=== PATIENT | male | born 1975 | race African-American/Black ===

== ENCOUNTER 2016-12-13 06:41 | Emergency (ER) | payer SELFPAY ==
[~2016-12-13] VITALS: Ht 190.5 cm; Wt 109.0 kg
[~2016-12-13 06:41] MED LIST: NOCURR; VALA500T38 PO
[2016-12-13] MEDS ORDERED: LIDOCAINE HCL BUFFERED 1% 20 ML VIAL INJ ONE (07:45)
[2016-12-13 07:59] VITALS: BP 140/85
[2016-12-13] MEDS ORDERED: HYDROCORTISONE 1% 1.5 GM CREAM TP ONE (08:15)
== END 2016-12-13 08:40 | disposition home or self-care (01) ==
LOC: EMS 06:42
DX: K64.9 Unspecified hemorrhoids (principal); Z88.0 Allergy status to penicillin
CPT/HCPCS: 99282; J3490

== ENCOUNTER 2017-01-13 15:47 | Emergency (ER) | payer MEDICAID ==
[~2017-01-13] VITALS: Ht 190.5 cm; Wt 100.0 kg
[~2017-01-13 15:47] MED LIST changes: -VALA500T38 PO
[2017-01-13] MEDS ORDERED: ONDANSETRON HCL 4 MG/2 ML VIAL IVP ONE (16:00)
[2017-01-13] MEDS ORDERED: SODIUM CHLORIDE 0.9% 1,000 ML IV ONE ×2 (16:00→17:30)
[2017-01-13] MEDS ORDERED: HYDROmorphone 2 MG/ML SYRINGE IVP ONE ×2 (16:00→16:45)
[2017-01-13] MEDS ORDERED: NALOXONE HCL 1 MG/ML 2 ML SYG ONE (16:56)
[2017-01-13] MEDS ORDERED: FLUMAZENIL 0.1 MG/ML 5 ML VIAL IVP ONE (16:56)
[2017-01-13] MEDS ORDERED: MIDAZOLAM HCL 5 MG/ML VIAL IVP ONE ×2 (17:00→17:30)
[2017-01-13] MEDS ORDERED: ETOMIDATE 2 MG/ML 10 ML VIAL IVP ONE ×2 (17:00→17:30)
[2017-01-13] MEDS ORDERED: FentaNYL CITRATE-PF 100 MCG/2 ML VIAL ONE (17:16)
[2017-01-13] MEDS ORDERED: FentaNYL CITRATE-PF 100 MCG/2 ML VIAL IVP ONE (17:30)
[2017-01-13 18:43] VITALS: BP 167/99
== END 2017-01-13 19:02 | disposition home or self-care (01) ==
LOC: EMS 15:50
DX: S43.004A Unspecified dislocation of right shoulder joint, initial encounter (principal); Z88.0 Allergy status to penicillin; W11.XXXA Fall on and from ladder, initial encounter; Y93.89 Activity, other specified; Y92.89 Other specified places as the place of occurrence of the external cause; Y99.8 Other external cause status
CPT/HCPCS: 23650; 73020; 96361; 96374; 96375; 96376; 99285; J1170; J2250; J2405; J3010; J3490; J7030; 99152; 99153; J2310

== ENCOUNTER 2017-12-02 07:24 | Emergency (ER) | payer MEDICAID ==
[~2017-12-02] VITALS: Ht 190.5 cm; Wt 108.0 kg
[2017-12-02] MEDS ORDERED: KETOROLAC TROMETHAMINE 30 MG/ML VIAL IVP ONE (08:00)
[2017-12-02] MEDS ORDERED: ONDANSETRON HCL 4 MG/2 ML VIAL IVP ONE (08:00)
[2017-12-02] MEDS ORDERED: SODIUM CHLORIDE 0.9% 1,000 ML IV ONE (08:00)
[2017-12-02 08:11] LABS: HEMATOCRIT 34.1 % (41-53); HEMOGLOBIN 10.5 g/dL (13.5-17.5); MEAN CORPUSCULAR HEMOGLOBIN 20.6 pg (26.0-34.0); MEAN CORPUSCULAR HGB CONC 30.7 G/dL (31.0-37.0); MEAN CORPUSCULAR VOLUME 67 fL (80-100); PLATELET COUNT (AUTO) 296 K/uL (150-450); RED BLOOD CELL COUNT(AUTO) 5.07 MIL/uL (4.50-5.90); RED CELL DISTRIBUTION WIDTH 19.5 % (11.5-14.5)
[2017-12-02 08:41] LABS: ANION GAP 11 mmol/L (8-16); CARBON DIOXIDE 26 mmol/L (22-29); CHLORIDE 105 mmol/L (98-107); CREATININE 0.82 mg/dL (0.60-1.30); GLOMERULAR FILTR. RATE CALC > 60 mL/min (>60); GLUCOSE,RANDOM 104 mg/dL (70-110); SODIUM SERUM 142 mmol/L (136-145); UREA NITROGEN, BLOOD 9 mg/dL (7-18)
[2017-12-02 08:44] VITALS: BP 136/81
[2017-12-02 08:58] LABS: ALANINE AMINOTRANSFERASE 33 U/L (12-78); ALBUMIN 4.3 g/dL (3.4-5.0); ALKALINE PHOSPHATASE 45 U/L (46-116); ASPARTATE AMINOTRANSFERASE 24 U/L (15-37); BILIRUBIN,TOTAL 0.4 mg/dL (0.1-1.0); LIPASE 187 U/L (73-393); TOTAL PROTEIN, SERUM 7.8 g/dL (6.4-8.2)
[2017-12-02 09:30] LABS: BAND NEUTROPHILS % (MANUAL) 2 % (1-5); EOSINOPHILS % (MANUAL) 2 % (1-6); LYMPHOCYTES % (MANUAL) 33 % (22-44); MONOCYTES % (MANUAL) 7 % (2-9); SEGMENTED NEUTROPHILS % 56 % (40-70)
[2017-12-02] MEDS ORDERED: ACETAMINOPHEN 500 MG TABLET PO ONE (09:30)
== END 2017-12-02 09:28 | disposition home or self-care (01) ==
LOC: EMS 07:25
DX: R11.2 Nausea with vomiting, unspecified (principal); R53.1 Weakness; R51 Headache; J02.9 Acute pharyngitis, unspecified; M79.1 Myalgia; Z88.0 Allergy status to penicillin
CPT/HCPCS: 36415; 80053; 83690; 85025; 96374; 96375; 99284; G0480; J1885; J2405; J7030

== ENCOUNTER 2018-07-25 06:19 | Emergency (ER) | payer MEDICAID ==
[~2018-07-25] VITALS: Ht 193 cm; Wt 100.0 kg
[2018-07-25 06:59] VITALS: BP 143/86
== END 2018-07-25 07:05 | disposition home or self-care (01) ==
LOC: EMS 06:19
DX: H00.024 Hordeolum internum left upper eyelid (principal); Z88.0 Allergy status to penicillin; Z87.891 Personal history of nicotine dependence

== ENCOUNTER 2020-03-26 00:47 | Emergency (ER) | payer MEDICAID ==
[~2020-03-26] VITALS: Ht 190.5 cm; Wt 102.3 kg
[2020-03-26] MEDS ORDERED: KETOROLAC TROMETHAMINE 30 MG/ML VIAL IVP ONE (01:15)
[2020-03-26] MEDS ORDERED: SODIUM CHLORIDE 0.9% 1,000 ML IV ONE ×2 (01:15→01:30)
[2020-03-26 02:05] LABS: HEMATOCRIT 34.7 % (41-53); HEMOGLOBIN 10.2 g/dL (13.5-17.5); MEAN CORPUSCULAR HEMOGLOBIN 17.7 pg (26.0-34.0); MEAN CORPUSCULAR HGB CONC 29.3 G/dL (31.0-37.0); MEAN CORPUSCULAR VOLUME 60 fL (80-100); PLATELET COUNT (AUTO) 344 K/uL (150-450); RED BLOOD CELL COUNT(AUTO) 5.77 MIL/uL (4.50-5.90)
[2020-03-26 02:12] LABS: ANION GAP 6 mmol/L (8-16); CALCIUM, TOTAL 9.2 mg/dL (8.8-10.5); CARBON DIOXIDE 30 mmol/L (22-29); CHLORIDE 109 mmol/L (98-107); GLOMERULAR FILTR. RATE CALC > 60 mL/min (>60); GLUCOSE,RANDOM 133 mg/dL (70-110); POTASSIUM 3.6 mmol/L (3.5-5.1); SODIUM SERUM 145 mmol/L (136-145); UREA NITROGEN, BLOOD 11 mg/dL (7-18)
[2020-03-26 02:23] LABS: ALANINE AMINOTRANSFERASE 52 U/L (12-78); ALBUMIN 4.3 g/dL (3.4-5.0); ALKALINE PHOSPHATASE 44 U/L (46-116); ASPARTATE AMINOTRANSFERASE 31 U/L (15-37); BILIRUBIN,TOTAL 0.3 mg/dL (0.1-1.0); CREATINE KINASE, TOTAL ONLY 204 U/L (39-308); LIPASE 116 U/L (73-393); TOTAL PROTEIN, SERUM 8.3 g/dL (6.4-8.2)
[2020-03-26 03:09] LABS: APPEARANCE,URINE CLEAR (CLEAR); BACTERIA,URINE None Seen /HPF (None Seen); BILIRUBIN,URINE NEGATIVE (NEGATIVE); GLUCOSE, URINE (UA) NEGATIVE (NEGATIVE); KETONES,URINE NEGATIVE (NEGATIVE); LEUKOCYTE ESTERASE ,URINE NEGATIVE (NEGATIVE); NITRATE,URINE NEGATIVE (NEGATIVE); OCCULT BLOOD,URINE NEGATIVE (NEGATIVE); PH,URINE 7.5 (5.0-8.0); PROTEIN,URINE NEGATIVE (NEGATIVE); RBC,URINE None Seen /HPF (0-2); WBC,URINE None Seen /HPF (0-5)
[2020-03-26 03:10] LABS: SQUAMOUS EPITHELIAL CELL,UR Rare /LPF (None Seen)
[2020-03-26 03:30] LABS: BAND NEUTROPHILS % (MANUAL) 0 % (0-5)
[2020-03-26 03:32] LABS: LYMPHOCYTES % (MANUAL) 15 % (22-44); MONOCYTES % (MANUAL) 3 % (2-9); SEGMENTED NEUTROPHILS % 82 % (40-70)
[2020-03-26] MEDS ORDERED: LIDOCAINE 5% TRANSDERMAL PATCH TD ONE (04:00)
[2020-03-26 04:30] VITALS: BP 147/92
== END 2020-03-26 05:00 | disposition home or self-care (01) ==
LOC: EMS 00:47
DX: R10.9 Unspecified abdominal pain (principal); Z87.891 Personal history of nicotine dependence; Z88.0 Allergy status to penicillin
CPT/HCPCS: 36415; 74176; 80053; 81001; 82550; 83690; 85025; 96374; 99284; J1885; J7030

== ENCOUNTER 2020-03-31 15:49 | Emergency (ER) | payer MEDICAID ==
[~2020-03-31] VITALS: Ht 188 cm; Wt 102.3 kg
[2020-03-31] MEDS ORDERED: 0.9% SODIUM CHLORIDE 10 ML SYRINGE IVP PRN (16:30)
[2020-03-31] MEDS ORDERED: ACETAMINOPHEN 500 MG TABLET PO ONE (16:45)
[2020-03-31] MEDS ORDERED: SODIUM CHLORIDE 0.9% 1,000 ML IV ONE (16:45)
[2020-03-31 17:01] LABS: HEMATOCRIT 34.8 % (41-53); HEMOGLOBIN 10.3 g/dL (13.5-17.5); MEAN CORPUSCULAR HGB CONC 29.8 G/dL (31.0-37.0); MEAN CORPUSCULAR VOLUME 61 fL (80-100); PLATELET COUNT (AUTO) 324 K/uL (150-450); RED BLOOD CELL COUNT(AUTO) 5.74 MIL/uL (4.50-5.90); RED CELL DISTRIBUTION WIDTH 23.1 % (11.5-14.5)
[2020-03-31 17:16] LABS: ANION GAP 7 mmol/L (8-16); CALCIUM, TOTAL 9.4 mg/dL (8.8-10.5); CARBON DIOXIDE 28 mmol/L (22-29); CHLORIDE 103 mmol/L (98-107); CREATININE 1.22 mg/dL (0.60-1.30); GLOMERULAR FILTR. RATE CALC > 60 mL/min (>60); GLUCOSE,RANDOM 118 mg/dL (70-110); POTASSIUM 3.1 mmol/L (3.5-5.1); SODIUM SERUM 138 mmol/L (136-145); UREA NITROGEN, BLOOD 9 mg/dL (7-18)
[2020-03-31 17:19] LABS: INR 1.1 (0.9-1.1); PROTHROMBIN TIME 11.4 SEC (9.4-11.6)
[2020-03-31 17:24] LABS: B-TYPE NATRIURETIC PEPTIDE < 5 pg/mL (0-100)
[2020-03-31 17:37] LABS: BAND NEUTROPHILS % (MANUAL) 0 % (0-5); EOSINOPHILS % (MANUAL) 3 % (1-6); LYMPHOCYTES % (MANUAL) 24 % (22-44); SEGMENTED NEUTROPHILS % 73 % (40-70)
[2020-03-31 17:41] LABS: ALANINE AMINOTRANSFERASE 39 U/L (12-78); ALBUMIN 4.6 g/dL (3.4-5.0); ALKALINE PHOSPHATASE 44 U/L (46-116); ASPARTATE AMINOTRANSFERASE 21 U/L (15-37); BILIRUBIN,TOTAL 0.5 mg/dL (0.1-1.0); CREATINE KINASE, TOTAL ONLY 245 U/L (39-308); D-DIMER 0.81 mg/L FEU (0.00-0.50); TOTAL PROTEIN, SERUM 8.8 g/dL (6.4-8.2)
[2020-03-31] MEDS ORDERED: POTASSIUM CHLORIDE 20 MEQ ER TABLET PO ONE (17:45)
[2020-03-31 17:47] LABS: INFLUENZA TYPE A NEGATIVE FOR TYPE A (NEGATIVE); INFLUENZA TYPE B NEGATIVE FOR TYPE B (NEGATIVE)
[2020-03-31] MEDS ORDERED: SODIUM CHLORIDE 0.9% 100 ML ONE (18:12)
[2020-03-31] MEDS ORDERED: IOVERSOL 350 MG/ML 100 ML VIAL ONE (18:13)
[2020-03-31 19:04] LABS: APPEARANCE,URINE CLEAR (CLEAR); BILIRUBIN,URINE NEGATIVE (NEGATIVE); GLUCOSE, URINE (UA) NEGATIVE (NEGATIVE); KETONES,URINE TRACE mg/dL (NEGATIVE); LEUKOCYTE ESTERASE ,URINE NEGATIVE (NEGATIVE); NITRATE,URINE NEGATIVE (NEGATIVE); OCCULT BLOOD,URINE NEGATIVE (NEGATIVE); PROTEIN,URINE NEGATIVE (NEGATIVE); UROBILINOGEN,URINE 0.2 mg/dL (<=1.0)
[2020-03-31 19:25] VITALS: BP 144/87
== END 2020-03-31 19:50 | disposition home or self-care (01) ==
LOC: EMS 16:07
DX: R00.2 Palpitations (principal); R50.9 Fever, unspecified; Z20.828 Contact with and (suspected) exposure to other viral communicable diseases; I10 Essential (primary) hypertension; F12.90 Cannabis use, unspecified, uncomplicated
CPT/HCPCS: 36415; 71045; 71275; 80053; 81003; 82550; 83605; 83880; 84145; 84484; 85025; 85379; 85610; 87040; 87804; 93005; 99285; J7030; J7050; Q9967; U0003

== ENCOUNTER 2021-04-22 07:37 | Emergency (ER) | payer MEDICAID ==
[~2021-04-22] VITALS: Ht 185.4 cm; Wt 100.0 kg
[2021-04-22 07:41] VITALS: BP 151/99
== END 2021-04-22 09:18 | disposition home or self-care (01) ==
LOC: EMS 07:47
DX: H00.012 Hordeolum externum right lower eyelid (principal); I10 Essential (primary) hypertension; F12.90 Cannabis use, unspecified, uncomplicated; Z87.891 Personal history of nicotine dependence; Z88.0 Allergy status to penicillin
CPT/HCPCS: 99283; Z7502

== ENCOUNTER 2021-10-04 06:19 | Emergency (ER) | payer MEDICAID ==
[~2021-10-04] VITALS: Ht 193 cm; Wt 104.0 kg
[2021-10-04 06:21] VITALS: BP 152/101
[2021-10-04] MEDS ORDERED: IBUPROFEN 600 MG TABLET PO ONE (06:45)
[2021-10-04] MEDS ORDERED: LIDOCAINE 5% TRANSDERMAL PATCH TD ONE (06:45)
[2021-10-04] MEDS ORDERED: LIDO700A15 TP (06:50)
[2021-10-04] MEDS ORDERED: IBUP-2070 PO (06:50)
[2021-10-04 07:55] LABS: COVID AG,FIA SOURCE NASOPHARYNGEAL
== END 2021-10-04 07:44 | disposition home or self-care (01) ==
LOC: EMS 06:20
DX: S46.011A Strain of muscle(s) and tendon(s) of the rotator cuff of right shoulder, initial encounter (principal); I10 Essential (primary) hypertension; F12.90 Cannabis use, unspecified, uncomplicated; Z88.0 Allergy status to penicillin; Z20.822 Contact with and (suspected) exposure to COVID-19; X50.0XXA Overexertion from strenuous movement or load, initial encounter; Y93.89 Activity, other specified; Y92.89 Other specified places as the place of occurrence of the external cause; Y99.8 Other external cause status
CPT/HCPCS: 87426; 99283; C9803

== ENCOUNTER 2025-04-15 20:47 | Emergency (ER) | payer MEDICAID ==
[~2025-04-15] VITALS: Ht 190.5 cm; Wt 113.6 kg
[~2025-04-15 20:47] MED LIST changes: +IBUP-1492 PO; +LIDO-57 TP; -NOCURR
[2025-04-15 20:52] VITALS: TEMP 99.1
[2025-04-15 21:04] LABS: COVID AG,FIA SOURCE NASAL SWAB
[2025-04-15 21:22] LABS: RAPID GROUP A STREP NEGATIVE (NEGATIVE)
[2025-04-15 21:23] LABS: SARS-COV2 (COVID) ANTIGEN,FIA Negative (Negative)
[2025-04-15 21:24] LABS: INFLUENZA TYPE A NEGATIVE FOR TYPE A (NEGATIVE); INFLUENZA TYPE B NEGATIVE FOR TYPE B (NEGATIVE)
[2025-04-15] MEDS: ACETAMINOPHEN 325 MG TABLET PO ONE (22:03)
[2025-04-16] MEDS ORDERED: CEPH-558 PO (00:35)
[2025-04-16 00:44] VITALS: BP 142/85; PULSE 82; RESP 18; O2SAT 98
== END 2025-04-16 00:50 | disposition home or self-care (01) ==
LOC: EMS 20:49
DX: J03.90 Acute tonsillitis, unspecified (principal); I10 Essential (primary) hypertension; F12.90 Cannabis use, unspecified, uncomplicated; Z87.891 Personal history of nicotine dependence; Z79.899 Other long term (current) drug therapy; Z88.0 Allergy status to penicillin; Z20.822 Contact with and (suspected) exposure to COVID-19
CPT/HCPCS: 71045; 87430; 87804; 99284

== ENCOUNTER 2025-05-23 20:02 | Emergency (ER) | payer MEDICAID ==
[~2025-05-23] VITALS: Ht 188 cm; Wt 106.8 kg
[~2025-05-23 20:02] MED LIST changes: +CEPH-558 PO
[2025-05-23 20:18] VITALS: BP 170/98; PULSE 102; RESP 16; TEMP 99.5; O2SAT 100
[2025-05-23] MEDS ORDERED: CLIN300C58 PO (22:59)
[2025-05-23] MEDS ORDERED: IBUP-1492 PO (22:59)
== END 2025-05-23 23:25 | disposition home or self-care (01) ==
LOC: EMS 20:02
DX: K11.20 Sialoadenitis, unspecified (principal); I10 Essential (primary) hypertension; F12.90 Cannabis use, unspecified, uncomplicated; Z88.0 Allergy status to penicillin
CPT/HCPCS: 99283; Z7502